=== PATIENT | female | born 1995 | race Two or more races ===

== ENCOUNTER 2019-08-10 22:58 | Emergency (ER) | payer OTHER ==
[~2019-08-10] VITALS: Ht 165.1 cm; Wt 55.8 kg
[2019-08-11] MEDS ORDERED: DICLOFENAC SODI75 MG PO (01:06)
== END 2019-08-11 01:15 | disposition home or self-care (01) ==
LOC: ER 22:58
DX: S93.691A Other sprain of right foot, initial encounter (principal); W10.8XXA Fall (on) (from) other stairs and steps, initial encounter; Y93.89 Activity, other specified; Y92.018 Other place in single-family (private) house as the place of occurrence of the external cause; Y99.8 Other external cause status

== ENCOUNTER 2023-02-08 09:46 | Emergency (ER) | payer OTHER ==
[~2023-02-08] VITALS: Ht 165.1 cm; Wt 58.1 kg
[~2023-02-08 09:46] MED LIST: DICLOFENAC SODI75 MG PO
[2023-02-08 12:15] LABS: HEMATOCRIT 41.2 % (36.0-45.00); HEMOGLOBIN 14.1 g/dL (12.0-15.00); MEAN CELL VOLUME 81.3 fL (80.00-100.00); MEAN CORPUSCULAR HEMOGLOBIN 27.8 pg (27.00-32.0); MEAN CORPUSCULAR HGB CONC 34.2 g/dl (32.0-36.0); PLATELET COUNT 257 K/uL (150-450); RED BLOOD COUNT 5.07 M/uL (4.00-6.00); RED CELL DISTRIBUTION WIDTH 13.9 % (11.5-14.5)
[2023-02-08 12:39] LABS: CALCIUM 9.2 mg/dL (8.5-10.1); CREATININE SERUM 0.81 mg/dL (0.55-1.02); GFR 85.47; POTASSIUM 3.66 mEq/L (3.5-5.1)
[2023-02-08 12:54] LABS: PH,URINE 5.5 (5.0-8.0); URINE APPEARANCE Cloudy; URINE BILIRRUBIN Negative (NEGATIVE); URINE BLOOD Negative; URINE COLOR Yellow; URINE LEUKOCYTE Small; URINE NITRATE Negative; URINE PROTEIN Trace (NEGATIVE)
[2023-02-08 12:58] LABS: URINE EPITHELIAL CELLS 64.4 uL (0.0-38.8); URINE RBC 45.8 uL (0.0-20.8); URINE WBC 278.4 uL (0.0-23.2)
[2023-02-08 13:45] LABS: URINE BACTERIA > 9821.5 uL (0.0-1933); URINE GLUCOSE 100 MG/DL (NEGATIVE)
== END 2023-02-08 15:00 | disposition home or self-care (01) ==
LOC: ER 09:46
PROVIDERS: General Practice
DX: N39.0 Urinary tract infection, site not specified (principal); R10.2 Pelvic and perineal pain; Z88.2 Allergy status to sulfonamides